=== PATIENT | female | born 1975 | race Caucasian/White ===

== ENCOUNTER 2020-03-25 16:35 | Emergency (ER) | payer OTHER ==
[~2020-03-25] VITALS: Ht 165.1 cm; Wt 64.4 kg
[2020-03-25] MEDS ORDERED: SERTRALINE HCL100 MG PO (16:50)
[2020-03-25] MEDS ORDERED: [UNRECOGNIZED DRUG - OTHER] (16:50)
[2020-03-25] MEDS ORDERED: PROGESTERO50 MG/1 M3 IM (16:50)
[2020-03-25 17:10] LABS: ABSOLUTE BASOPHILS 0.1 thou/uL (0.0-0.2); ABSOLUTE LYMPHOCYTES 2.4 thou/uL (0.8-5.3); ABSOLUTE MONOCYTES 0.5 thou/uL (0.0-1.2); ABSOLUTE NEUTROPHILS 3.9 thou/uL (1.6-8.1); EOSINOPHILS 0.3 %; HEMATOCRIT 44.2 % (37.0-47.0); HEMOGLOBIN 14.9 gm/dL (12.0-15.0); LYMPHOCYTES 34.6 %; MCH 31.1 pg (26.0-34.0); MCHC 33.7 g/dL (28.0-37.0); MCV 92.5 fL (80.0-100.0); MONOCYTES 7.5 %; MPV 8.1 fl. (7.2-11.1); NUCLEATED RBCS 0 /100WBC; PLATELET COUNT* 241 thou/uL (150-400); POLYS 56.6 %; RBC 4.78 mil/uL (4.20-5.00); WBC 6.9 thou/uL (4.0-11.0)
[2020-03-25 17:18] LABS: CREATININE 0.7 mg/dL (0.6-1.3); POTASSIUM 3.5 mmol/L (3.5-5.1)
[2020-03-25 17:22] LABS: ALBUMIN 4.6 g/dL (3.4-5.0); TOTAL BILIRUBIN 0.3 mg/dL (<0.1-1.0); TOTAL PROTEIN 8.5 g/dL (6.4-8.2)
[2020-03-25 17:22] LABS: URINE BILIRUBIN NEGATIVE (Negative); URINE BLOOD 1+ (Negative); URINE CLARITY CLEAR; URINE COLOR YELLOW; URINE GLUCOSE-RANDOM NEGATIVE (Negative); URINE KETONES NEGATIVE (Negative); URINE NITRITE-REFLEX NEGATIVE (Negative); URINE PROTEIN NEGATIVE (Negative); URINE SPECIFIC GRAVITY 1.015 (1.005-1.030); URINE UROBILINOGEN 0.2 E.U./dl (0.2-1.0)
[2020-03-25 17:26] LABS: URINE LEUKOCYTES-REFLEX 2+ (Negative)
[2020-03-25 17:38] LABS: CASTS None Seen /LPF (None Seen); CRYSTALS None Seen /LPF (None Seen); SQUAMOUS 0-3 Few /LPF (0-3); URINE RBC 3-10 Few /HPF (0-2); URINE WBC-REFLEX 6-15 Few /HPF (0-5)
[2020-03-25] MEDS ORDERED: MACROBID 100 M100 M2 PO (18:46)
[2020-03-25 19:12] VITALS: BP 131/70
== END 2020-03-25 19:12 | disposition home or self-care (01) ==
LOC: M.ERS 16:35
PROVIDERS: Nurse Practitioner Family
DX: N39.0 Urinary tract infection, site not specified (principal); K80.20 Calculus of gallbladder without cholecystitis without obstruction; N83.201 Unspecified ovarian cyst, right side; K58.9 Irritable bowel syndrome, unspecified; Z88.1 Allergy status to other antibiotic agents; Z98.890 Other specified postprocedural states; Z90.89 Acquired absence of other organs